=== PATIENT | male | born 1975 | race Caucasian/White ===

== ENCOUNTER 2024-07-22 20:23 | Emergency (ER) | payer MEDICAID, SELFPAY ==
--- NOTE | ~2024-07-22 | CT_ITS ---
EXAMINATION: CT HEAD WITHOUT CONTRAST CT CERVICAL SPINE WITHOUT CONTRAST CLINICAL INFORMATION: Syncope COMPARISON: None. TECHNIQUE: Contiguous axial imaging was performed from the skull base to vertex without intravenous administration of contrast. In addition, helical noncontrast CT imaging was acquired through the cervical spine and source images were reviewed along with axial reconstructions and sagittal and coronal MPRs. DOSE LOWERING TECHNIQUES: This CT examination was performed using dose optimization techniques as appropriate, variously including the following: - Automated exposure control - Adjustment of mA and/or kV according to patient size (this includes techniques or standardized protocols for targeted exams were dose is matched to indication/reason for exam; i.e. extremities or head) - Use of degenerative construction technique DLP: 1419 mGy-cm FINDINGS: HEAD: No intracranial mass, hemorrhage, or midline shift is visualized. The ventricles and sulci are age-appropriate. No extra-axial collections are identified. The paranasal sinuses are well aerated. CERVICAL SPINE: There is no evidence of acute cervical spine fracture. Vertebral bodies remain normal in height and alignment is anatomic. Large anterior osteophytes at C5-C6 and C6-C7. No pre- or paravertebral soft tissue abnormality is identified. Limited assessment of the lung apices is unremarkable. CT/CT head/brain wo IV con IMPRESSION: 1. No acute intracranial pathology. 2. No CT evidence of acute cervical spine fracture or traumatic subluxation Electronically signed by: Herlinda Jacob MD 07/22/2024 09:47 PM EDT
--- NOTE | ~2024-07-22 | CT_ITS ---
EXAMINATION: CT HEAD WITHOUT CONTRAST CT CERVICAL SPINE WITHOUT CONTRAST CLINICAL INFORMATION: Syncope COMPARISON: None. TECHNIQUE: Contiguous axial imaging was performed from the skull base to vertex without intravenous administration of contrast. In addition, helical noncontrast CT imaging was acquired through the cervical spine and source images were reviewed along with axial reconstructions and sagittal and coronal MPRs. DOSE LOWERING TECHNIQUES: This CT examination was performed using dose optimization techniques as appropriate, variously including the following: - Automated exposure control - Adjustment of mA and/or kV according to patient size (this includes techniques or standardized protocols for targeted exams were dose is matched to indication/reason for exam; i.e. extremities or head) - Use of degenerative construction technique DLP: 1419 mGy-cm FINDINGS: HEAD: No intracranial mass, hemorrhage, or midline shift is visualized. The ventricles and sulci are age-appropriate. No extra-axial collections are identified. The paranasal sinuses are well aerated. CERVICAL SPINE: There is no evidence of acute cervical spine fracture. Vertebral bodies remain normal in height and alignment is anatomic. Large anterior osteophytes at C5-C6 and C6-C7. No pre- or paravertebral soft tissue abnormality is identified. Limited assessment of the lung apices is unremarkable. CT/CT cervical spine wo IV con IMPRESSION: 1. No acute intracranial pathology. 2. No CT evidence of acute cervical spine fracture or traumatic subluxation Electronically signed by: Herlinda Jacob MD 07/22/2024 09:47 PM EDT
[2024-07-22 20:25] VITALS: BP 119/84; PULSE 86; O2SAT 100
[2024-07-22 20:31] VITALS: BP 112/65; PULSE 80; RESP 14; TEMP 36.5; O2SAT 79; BMI 30.4
--- NOTE | 2024-07-22 20:38 | ECG_ITS ---
Test Reason : od Blood Pressure : / mmHG Vent. Rate : 070 BPM Atrial Rate : 070 BPM P-R Int : 176 ms QRS Dur : 098 ms QT Int : 452 ms P-R-T Axes : 034 049 042 degrees QTc Int : 488 ms Normal sinus rhythm Prolonged QT Abnormal ECG No previous ECGs available Referred By: Simon Lamas Electronically Signed By:Cipriano Kern
--- NOTE | 2024-07-22 20:57 | MHC.EDTECH ---
[facility]
[2024-07-22 20:58] VITALS: BP 103/61; PULSE 71; RESP 9; O2SAT 96
--- NOTE | 2024-07-22 21:07 | PC.NURSE ---
pt admits to cocaine use, once a week
[2024-07-22 21:24] LABS: MANUAL DIFF FLAG NO
--- NOTE | 2024-07-22 21:26 | MHC.EDTECH ---
Addendum entered by Sirena Reyes 07/22/24 21:31: Late entry@2057 Original Note: Patient BIBA,security at bedside to assist with change booth attendant,patient changed into hospital attire,vitals taken,O2 stats were low at 80% RN was made aware,RN placed pt on 2L VNC,sats went up to 96%,patient was moved to ED bed 4,placed pt on the pastrycook,placed pt on capnography,EKG taken per order and signed by provider,all belongings went to [facility], [place]
[2024-07-22 21:27] LABS: Basophils Absolute Auto 0.1 X10*3/uL (0.0-0.2); Basophils Percent Auto 0.7 % (0-2); Eosinophils Absolute Auto 0.1 X10*3/uL (0.0-0.4); Eosinophils Percent Auto 0.9 % (0-4); Hemoglobin 12.6 g/dl (14.0-18.0); Imm Gran Abs Auto 0.07 X10*3/uL (0.00-0.03); Imm Gran Pct Auto 0.7 % (0.0-0.4); Lymphocytes Absolute Auto 4.4 X10*3/uL (1.2-4.9); Lymphocytes Percent Auto 41.3 % (20-40); Mean Corpuscular HGB Conc 31.5 g/dl (31.0-36.0); Mean Corpuscular Volume 88.9 fL (80.0-98.0); Mean Platelet Volume 9.1 fL (9.4-12.4); Monocytes Absolute Auto 0.7 X10*3/uL (0.1-1.2); Monocytes Percent Auto 6.4 % (2-11); Neutrophils Absolute Auto 5.3 x10*3/uL (2.0-8.3); Platelet Count 334 X10*3/uL (160-400); White Blood Count 10.6 X10*3/uL (4.8-10.8)
[2024-07-22 21:30] LABS: Venous Blood Gas Refer to POC result
[2024-07-22 21:30] LABS: VBG Base Excess -2.2 mmol/L; VBG HCO3 23 mmol/L (22-26); VBG pCO2 43 mmHg; VBG pH 7.33 (7.32-7.43); VBG pO2 146 mmHg
--- NOTE | 2024-07-22 21:32 | ED.GENADULT ---
HPI - General Adult General Chief complaint: General Medical Stated complaint: OD, 6mg narcan IM, 1mg IV, now coax4 Time Seen by Provider: 07/22/24 21:06 Source: patient and EMS Mode of arrival: EMS Limitations: no limitations History of Present Illness ED Provider: emmanuel DURON narrative: Apparently patient was at work noted cocaine likely mixed with fentanyl became unresponsive fell down without any significant injuries was having agonal breathing when EMS arrived PD gave 4 mg of Narcan and was bagging more IV Narcan was given on arrival patient was saturating 79% at room air improved during stay in the ER saturating 96% on 2 L no vomiting Related Data Allergies Allergy/AdvReac Type Severity Reaction Status Date / Time No Known Allergies Allergy Verified 07/22/24 20:34 Review of Systems Review of Systems: Yes all other systems are reviewed and are negative [facility] Social History Social History Advance Directives: No Advance Directives Information Provided: No Physical Exam ED Vital Signs: Vital Signs - 24 hr 07/22/24 20:31 07/22/24 20:58 Temperature 97.7 F Pulse Rate 80 71 Respiratory Rate 14 9 L Blood Pressure 112/65 103/61 Pulse Oximetry 79 L 96 Oxygen Delivery Method Room Air Nasal Cannula Oxygen Flow Rate 2 BMI result Body Mass Index 30.4 Appearance: Alert. Oriented X3. No acute distress. Eyes: Pupils 2 mm reacting to light, No Nystagmus ENT: Pharynx normal. Oral Mucosa moist Neck: Normal inspection. Neck supple. CVS: Normal heart rate and rhythm. Pulses normal. Respiratory: No respiratory distress. Equal air entry bilateral, no wheezing/rales/rhonchi Abdomen: Soft and nontender. Bowel sounds are present, no mass palpable, no CVA tenderness Skin: Skin warm and dry. Normal skin color. Normal skin turgor. Extremities: No lower extremity edema. No calf tenderness Neuro: Oriented X 3. No motor deficit. No sensory deficit.No cerebellar signs , cranial nerves II-XII intact Medications Administered Discontinued Medications Generic Name Dose Route Start Last Admin Trade Name Freq PRN Reason Stop Dose Admin Naloxone HCl 8 mg 07/22/24 23:37 07/22/24 23:43 Naloxone Hcl Nasal Take Home 4 Mg [place] NOSTRILALT 07/22/24 23:38 8 mg ONCE ONE Administration Medical Decision Making Medical Decision Making [facility] Narrative: Patient with accidental opiate overdose responded to Narcan during stay patient more awake saturating 96% on room air will discharge patient home advised to follow up with detox Lab Data MDM Lab Attestation statement: I reviewed the patient's lab results. 07/22/24 21:19 07/22/24 21:19 Labs: Lab Results 07/22/24 07/22/24 07/22/24 Range/Units 21:18 21:19 21:25 WBC 10.6 (4.8-10.8) X10*3/uL RBC 4.50 L (4.60-5.80) X10*6/uL Hgb 12.6 L (14.0-18.0) g/dl Hct 40.0 L (42.0-52.0) % MCV 88.9 (80.0-98.0) fL MCH 28.0 (27.0-33.0) pg MCHC 31.5 (31.0-36.0) g/dl RDW 12.0 (11.0-16.0) % Plt Count 334 (160-400) X10*3/uL MPV 9.1 L (9.4-12.4) fL Immature Gran % (Auto) 0.7 H (0.0-0.4) % Neut % (Auto) 50.0 (45-73) % Lymph % (Auto) 41.3 H (20-40) % Boyle % (Auto) 6.4 (2-11) % Eos % (Auto) 0.9 (0-4) % Baso % (Auto) 0.7 (0-2) % Lymph # (Auto) 4.4 (1.2-4.9) X10*3/uL Boyle # (Auto) 0.7 (0.1-1.2) X10*3/uL Eos # (Auto) 0.1 (0.0-0.4) X10*3/uL Baso # (Auto) 0.1 (0.0-0.2) X10*3/uL Abs Immat Gran (auto) 0.07 H (0.00-0.03) X10*3/uL Absolute Neuts (auto) 5.3 (2.0-8.3) x10*3/uL Absolute Nucleated RBC 0.000 (0.0-0.012) X10*3/uL Nucleated RBC % (auto) 0.0 (0.0-0.2) /100WBC VBG pH 7.33 (7.32-7.43) VBG pCO2 43 mmHg VBG pO2 146 mmHg VBG HCO3 23 (22-26) mmol/L VBG O2 Saturation 99.0 % VBG Base Excess -2.2 mmol/L Sodium 140 (135-145) mmol/L Potassium 3.7 (3.3-5.1) mmol/L Chloride 106 (96-108) mmol/L Carbon Dioxide 23 (22-29) mmol/L Anion Gap 15 (12-20) BUN 20 H (9-16) mg/dL Creatinine 1.32 (0.5-1.4) mg/dL Estim Creat Clear Calc 74.0 Estimated GFR 58 Random Glucose 207 H (60-115) mg/dL Lactic Acid 2.2 H* (0.5-2.0) mmol/L Calcium 8.7 (8.4-10.2) mg/dL Total Bilirubin 0.3 (0.0-1.0) mg/dL AST 26 (5-37) U/L ALT 30 (0-40) U/L Alkaline Phosphatase 105 (39-117) U/L Troponin I High Sens < 2.7 (<3.5-35.0) ng/L Total Protein 6.9 (6.5-8.0) g/dL Albumin 4.2 (3.5-5.0) g/dL Independent Interpretation I performed an independent interpretation of an: EKG Interpretation: Normal sinus rhythm heart rate 70 beats per minute QTC [address]-T changes no acute ischemia Discharge Plan Discharge Clinical Impression: Overdose Patient Disposition: Home, Self-Care Instructions: Opioid Use Disorder (ED) Additional Instructions: Do not use drugs Follow up with detox Interventions: ED Discharge Assessment Last Done: 07/22/24 23:47 Discharge Date/Time: 07/22/24 23:48 Print Language: Turkish
[2024-07-22 21:45] LABS: Alanine Aminotransferase 30 U/L (0-40); Albumin Level 4.2 g/dL (3.5-5.0); Alkaline Phosphatase 105 U/L (39-117); Anion Gap 15 (12-20); Aspartate Amino Transferase 26 U/L (5-37); Bilirubin Total 0.3 mg/dL (0.0-1.0); Blood Urea Nitrogen 20 mg/dL (9-16); Calcium 8.7 mg/dL (8.4-10.2); Carbon Dioxide 23 mmol/L (22-29); Chloride 106 mmol/L (96-108); Estimated Glomerular Filt Rate 58; Glucose Random 207 mg/dL (60-115); Potassium 3.7 mmol/L (3.3-5.1); Sodium 140 mmol/L (135-145); Total Protein 6.9 g/dL (6.5-8.0)
[2024-07-22 21:54] LABS: Troponin-I High Sensitivity < 2.7 ng/L (<3.5-35.0)
[2024-07-22 21:59] LABS: Lactic Acid 2.2 mmol/L (0.5-2.0)
[2024-07-22 22:00] VITALS: BP 117/73; PULSE 72; RESP 9; TEMP 36.4; O2SAT 99
--- NOTE | 2024-07-22 22:10 | MHC.EDTECH ---
Hourly rounding completed,patient is sleeping, at bedside
--- NOTE | 2024-07-22 22:12 | PC.NURSE ---
RA trial, pt fell asleep, 02 at 80%. placed back on 2L NC. pt does report sleep apnea. stat increases when awake
--- NOTE | 2024-07-22 22:24 | PC.NURSE ---
at bedside, C-collar removed, scan negative
[2024-07-22 23:22] LABS: Reflex Lactate? Lactic Acid Added
--- NOTE | 2024-07-22 23:27 | MHC.EDTECH ---
Attempted to get a repeat lactic,patient is refusing wants to leave, at bedside,provider and RN were made aware
[2024-07-22 23:33] LABS: Cancel Lactic Acid Canceled
[2024-07-22] MEDS: Naloxone HCl Nasal TAKE HOME 4 MG SPRAY 8 MG NOSTRILALT (23:43)
[2024-07-22 23:47] VITALS: BP 128/64; PULSE 75; RESP 13; TEMP 36.6; O2SAT 96
== END 2024-07-22 23:48 | disposition home or self-care (01) ==
PROVIDERS: Student in an Organized Health Care Education/Training Program; Emergency Provider Internal Medicine
DX: T40.1X1A Poisoning by heroin, accidental (unintentional), initial encounter (principal); R40.4 Transient alteration of awareness; Y92.9 Unspecified place or not applicable
CPT/HCPCS: 36415; 70450; 72125; 80053; 82803; 83605; 84484; 85025; 93005; 99284

== ENCOUNTER → 2024-07-22 20:38 | Outpatient (BNV) | payer MEDICAID, SELFPAY | PROVIDERS: Emergency Provider Internal Medicine; Visit Provider Internal Medicine Cardiovascular Disease | DX: R94.31 Abnormal electrocardiogram [ECG] [EKG] (principal) | CPT/HCPCS: 93010 ==